=== PATIENT | female | born 1990 | race Caucasian/White ===

== ENCOUNTER 2017-02-07 19:45 | Emergency (ER) | payer OTHER ==
[2017-02-07 20:57] VITALS: BMI 41.0
[2017-02-07] MEDS: Lactated Ringer's 1,000 ML IV SCH ×2 (21:05→22:00)
[2017-02-07 21:23] LABS: RBC URINE 3 /hpf (0-3); URINE BACTERIA RARE (<OCC); URINE BILIRUBIN NEGATIVE (NEGATIVE); URINE BLOOD NEGATIVE (NEGATIVE); URINE COLOR YELLOW (YELLOW); URINE GLUCOSE (UA) >=500 mg/dL (Normal); URINE KETONE NEGATIVE (NEGATIVE); URINE LEUKOCYTE ESTERASE SMALL Leu/uL (Negative); URINE PROTEIN NEGATIVE (NEGATIVE); URINE UROBILINOGEN 0.2-1.0 mg/dL (0.2-1.0)
[2017-02-07 21:24] LABS: WBC URINE 12 /hpf (0-5)
--- NOTE | 2017-02-07 22:57 | OBHP ---
Datetime: 02/07/2017 22:49 Admit Comment, IP Provider: OB Hospitalist on-call...UA results rev'd will send urine culture. Pt to follow up results with vielka maldonado OB. Will give Cephalexin 500mg po TID for 7d. FFN was negative labor instructions given; follow up this monday with OB; pt given copy of results
--- NOTE | 2017-02-07 23:00 | OBDCSUM ---
Datetime: 02/07/2017 22:47 Discharged to, Provider: Home Follow up at, Provider: [facility] Disch Instr Diet: Regular Discharge Diagnosis, Provider: False Labor - Undelivered Discharge Time: 02/07/2017 22:55 Follow up in weeks, Provider: Monday02/10/17 Disch Referrals: None Disch Activity Restrictions: No sexual activity; Nothing in vagina - [place], tampons, douche Discharge Diagnosis Prov Other: UTI
[2017-02-08 03:33] VITALS: BP 99/81; PULSE 97; RESP 18; TEMP 97.9
== END 2017-02-07 22:55 | disposition home or self-care (01) ==
LOC: H.EROB2 19:45
DX: O47.03 False labor before 37 completed weeks of gestation, third trimester (principal); Z3A.34 34 weeks gestation of pregnancy
CPT/HCPCS: 81003; 87086; 87390; 96360; 99283; J7120

== ENCOUNTER 2018-08-21 22:30 | Emergency (ER) | payer MEDICAID, OTHER ==
[2018-08-21 22:30] VITALS: BMI 41.0
[2018-08-21 22:41] VITALS: RESP 16
[2018-08-21] MEDS ORDERED: Albuterol-Ipratrop 3 mg / 0.5 (3 ml) UD INH STA (23:03)
[2018-08-21] MEDS ORDERED: guaiFENesin DM 200 mg-20 mg/10 ml UD PO STA (23:14)
[2018-08-21] MEDS ORDERED: Albuterol-Ipratrop 3 mg / 0.5 (3 ml) UD ONE (23:18)
--- NOTE | 2018-08-21 23:18 | ED PDOC ---
HPI: CCC, URI, Sore Throat Time Seen by Provider: 08/21/18 22:49 Chief Complaint (Nursing): Cough, Cold, Congestion Chief Complaint (Provider): Cough, Cold, Congestion History Per: Patient History/Exam Limitations: no limitations Onset/Duration Of Symptoms: Days (x 2) Current Symptoms Are (Timing): Still Present Associated Symptoms: Cough Additional Complaint(s): 28 year old female with a medical history of hypothyroidism presents to the ED with chest pain, shortness of breath and cough for two days. Patient describes chest pain and some back pain as tightness. She reports flu-like symptoms two weeks ago. Now, with a lingering cough. Denies vomiting, diarrhea and fever. PMD: [place] Past Medical History Reviewed: Historical Data, Nursing Documentation, Vital Signs Vital Signs: Last Vital Signs Temp 99.2 F 08/21/18 22:38 Pulse 63 08/21/18 22:38 Resp 16 08/21/18 22:38 BP 121/73 08/21/18 22:38 Pulse Ox 99 08/21/18 22:38 - Medical History PMH: Hypothyroidism - Surgical History Surgical History: - Family History Family History: States: CAD, Diabetes, Hypertension - Immunization History Hx Tetanus Toxoid Vaccination: Yes Hx Influenza Vaccination: No (Not flu season ) Hx Pneumococcal Vaccination: Yes - Home Medications Home Medications: Ambulatory Orders Medication Instructions Recorded Acetaminophen/Butalbital/Caf 1 tab PO TID #10 tab 12/21/15 [Fioricet] Ibuprofen [Motrin] 600 mg PO Q6 #20 tab 01/18/16 Oxycodone HCl/Acetaminophen 1 tab PO Q4 #10 tab 01/18/16 [Percocet 325 mg-5 mg] Albuterol HFA [Ventolin HFA 90 1 - 2 puff IH Q6 PRN #1 inhaler 08/22/18 mcg/actuation (8 g)] Azithromycin [Zithromax] 250 mg PO QAM #1 pkg 08/22/18 Benzonatate [Tessalon Perle] 100 mg PO TID PRN #15 capsule 08/22/18 predniSONE [predniSONE Tab] 60 mg PO QAM #12 tab 08/22/18 - Allergies Allergies/Adverse Reactions: Allergies Allergy/AdvReac Type Severity Reaction Status Date / Time No Known Allergies Allergy Verified 01/15/16 15:23 Review of Systems ROS Statement: Except As Marked, All Systems Reviewed And Found Negative Constitutional: Negative for: Fever, Chills Cardiovascular: Positive for: Chest Pain (tightness) Respiratory: Positive for: Cough, Shortness of Breath Gastrointestinal: Negative for: Nausea, Vomiting, Abdominal Pain, Diarrhea Musculoskeletal: Positive for: Back Pain (tightness) Physical Exam - Reviewed Nursing Documentation Reviewed: Yes Vital Signs Reviewed: Yes - Physical Exam Appears: Positive for: Non-toxic, No Acute Distress Head Exam: Positive for: ATRAUMATIC, NORMAL INSPECTION, NORMOCEPHALIC Skin: Positive for: Normal Color, Warm, Dry Eye Exam: Positive for: EOMI, Normal appearance, PERRL Neck: Positive for: Normal, Painless ROM, Supple Cardiovascular/Chest: Positive for: Regular Rate, Rhythm. Negative for: Murmur Respiratory: Positive for: Decreased Breath Sounds (decreased air entry). Negative for: Respiratory Distress Gastrointestinal/Abdominal: Positive for: Normal Exam, Soft. Negative for: Tenderness Back: Positive for: Normal Inspection. Negative for: L CVA Tenderness, R CVA Tenderness Extremity: Positive for: Normal ROM (x 4). Negative for: Deformity Neurological/Psych: Positive for: Awake, Alert, Normal Tone, Oriented. Negative for: Motor/Sensory Deficits - ECG O2 Sat by Pulse Oximetry: 99 (RA) Pulse Ox Interpretation: Normal Medical Decision Making Medical Decision Makin:03 Impression: 28 year old with bronchospasm, URI Initial Plan: --Robitussin DM 10 ml PO --Duoneb 3 ml INH --Prednisone 60 mg PO --Peak flow pre/post --CXR --Urine preg --Urine dip 00:33 On re-evaluation, patient reports improvement of symptoms and is stable for discharge. Diagnosis is bronchitis/ bronchospasm. Given duration of symptoms, patient will be discharged with Z-Roly, albuterol, prednisone and tessalon perles. Scribe Attestation: Documented by Windy Waters, acting as a scribe Karen Bartlett MD Provider Scribe Attestation: All medical record entries made by the Scribe were at my direction and personally dictated by me. I have reviewed the chart and agree that the record accurately reflects my personal performance of the history, physical exam, medical decision making, and the department course for this patient. I have also personally directed, reviewed, and agree with the discharge instructions and disposition Disposition - Clinical Impression Clinical Impression: Bronchitis - Patient ED Disposition Is Patient to be Admitted: No - Disposition Referrals: Ashu Reid MD [Primary Care Provider] - Disposition: Routine/Home Disposition Time: 00:33 Condition: IMPROVED Prescriptions: Albuterol HFA [Ventolin HFA 90 mcg/actuation (8 g)] 1 - 2 puff IH Q6 PRN #1 inhaler PRN Reason: Shortness Of Breath Azithromycin [Zithromax] 250 mg PO QAM #1 pkg Benzonatate [Tessalon Perle] 100 mg PO TID PRN #15 capsule PRN Reason: Cough predniSONE [predniSONE Tab] 60 mg PO QAM #12 tab Instructions: Acute Bronchitis Forms: [employer] (Kinyarwanda)
[2018-08-22 00:56] VITALS: BP 104/64; PULSE 89; TEMP 99.1
[2018-08-22 06:43] VITALS: O2SAT 99
--- NOTE | 2018-08-22 08:22 | CARD ---
APPROVED REPORT Date of service: 08/21/2018 EKG Measurement Heart [id number] <Conclusion> Normal sinus rhythm Normal ECG
--- NOTE | 2018-08-22 08:59 | RAD ---
Date of service: 08/21/2018 HISTORY: cough COMPARISON: No prior. TECHNIQUE: Chest PA and lateral views FINDINGS: LUNGS: No active pulmonary disease. PLEURA: No significant pleural effusion identified. No pneumothorax apparent. CARDIOVASCULAR: No aortic atherosclerotic calcification present. Normal cardiac size. No pulmonary vascular congestion. OSSEOUS STRUCTURES: No significant abnormalities. VISUALIZED UPPER ABDOMEN: Normal. OTHER FINDINGS: None. IMPRESSION: No active disease.
== END 2018-08-22 00:56 | disposition home or self-care (01) ==
LOC: H.ER 22:30
DX: J40 Bronchitis, not specified as acute or chronic (principal); E03.9 Hypothyroidism, unspecified